=== PATIENT | female | born 1985 ===

== ENCOUNTER 2022-03-22 09:30 | Outpatient (CLI) | payer OTHER | END 2022-03-22 09:40 | disposition home or self-care (01) | LOC: RAD 09:30 | PROVIDERS: ATTEND Specialist | DX: D17.21 Benign lipomatous neoplasm of skin and subcutaneous tissue of right arm (principal) ==

== ENCOUNTER 2022-04-02 05:00 | Day surgery (SDC) | payer OTHER ==
[~2022-04-02] VITALS: Ht 172.7 cm; Wt 62.6 kg
== END 2022-04-02 11:20 | disposition home or self-care (01) ==
LOC: CIR.AMB 05:00
PROVIDERS: ATTEND Specialist
DX: D17.21 Benign lipomatous neoplasm of skin and subcutaneous tissue of right arm (principal); Z20.822 Contact with and (suspected) exposure to COVID-19